=== PATIENT | female | born 1985 | race Caucasian/White ===

== ENCOUNTER 2018-05-20 07:00 | Outpatient (CLI) | payer OTHER, SELFPAY ==
--- NOTE | 2018-05-20 07:37 | PM.OBTRLD ---
Visit Information Visit Information Date of evaluation: 05/20/18 Reason for Evaluation: Yes other Comments/Additional reasons for admission: Patient came in for version for breech presentation on ultrasound performed by her employee's representative. Ultrasound done on admission shows the baby is vertex. Evaluation Evaluation Baseline heart rate: 135 Variability: Moderate (11-25) monitor accelerations: Present monitor decelerations: Absent Contraction Frequency (minutes): 3 Uterine Contraction Intensity: Mild Category of Tracing: I Diagnosis, Plan/Disposition Final Diagnosis (1) H/O malposition: Current Visit: Yes Status: Acute Problem details: the baby is now vertex Plan/Disposition Plan: Follow up with her employee's representative OB Disposition: home
--- NOTE | 2018-05-20 07:41 | P.TNLD_ITS ---
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 Ultrasound done on admission shows the baby is vertex. Evaluation Evaluation Baseline heart rate: 135 Variability: Moderate (11-25) monitor accelerations: Present monitor decelerations: Absent Contraction Frequency (minutes): 3 Uterine Contraction Intensity: Mild Category of Tracing: I Diagnosis, Plan/Disposition Final Diagnosis (1) H/O malposition: Current Visit: Yes Status: Acute Problem details: the baby is now vertex Plan/Disposition Plan: Follow up with her signal system testing maintainer OB Disposition: home
== END 2018-05-20 07:46 ==
LOC: LABOR 07:58 → OB 10:06
PROVIDERS: Visit Provider Obstetrics & Gynecology
DX: Z36.9 Encounter for antenatal screening, unspecified (principal)
CPT/HCPCS: 59025; G0378; G0379